=== PATIENT | female | born 1965 | race African-American/Black ===

== ENCOUNTER 2018-04-05 20:15 | Emergency (ER) | payer OTHER ==
--- OUTSIDE RECORDS SUMMARY | 2018-04-05 20:18 | XMS REPORT | Continuity of Care Document ---
:1965 Author Organization Interface Problems Problem Status Onset Classification Date Comments Source Date Reported Z12.31 - ENCNTR Active [facility] SCREEN MAMMOGRAM 6 Michael FOR [place] 241.0 - NONTOX Active [facility] UNINODUL [address] [place] [id number],MORBID Active [facility] OBESITY [facility] [address],GERD Active [address] [address], REFLUX Active [address] Hiatal hernia Active Problem 02/12/2016 [facility] Jeanette, OP[facility] Michael Hypertension Active Problem 02/12/2016 [facility] Jeanette, OPID Michael Morbid obesity Active Problem 02/12/2016 [facility] Jeanette, OP[facility] Michael Reflux Active Problem 02/12/2016 [facility] Jeanette, [facility] [place] Final: Morbid 06/16/2014 [facility] Obesity City Final: 06/16/2014 [facility] Unspecified [facility] Essential Hypertension Final: Body Mass 06/16/2014 [facility] Index 45.0-49.9, [facility] Adult Final: Personal 06/16/2014 [facility] History of [facility] Tobacco Use MORBID OBESITY Active [facility] Medications Medication Details Route Status Patient Ordering Order Source Instructions Provider Date Potassium 20 mEq, 15 mL, Inactive 06/09/ Chloride 1.33 Route: PO, Drug 2013 [facility] MEQ/ML Oral form: LIQ, City Solution Daily, Dosing Weight 114.545, kg, Start date: 06/09/14 11:34:00, Duration: 30 day, Stop date: 07/09/14 9:00:00Notes: (Same as: Potassium Chloride) Omeprazole 40 40 mg=1 cap, PO, Active 06/09/ MG Enteric Daily, # 30 cap, 2013 [facility] Coated Capsule 0 Refill(s) [facility] [Prilosec] Acetaminophen 15 ml, PO, Q4H, Active 06/09/ 24 MG/ML / Pain, # 240 mL, 2013 [facility] Codeine 0 Refill(s) [place] Phosphate 2.4 MG/ML Oral Solution Lovenox 40 mg, 0.4 mL, No Longer Route: SUB-Q, Active 2013 [facility] Drug form: INJ, City Q12H, Start date: 06/08/14 11:00:00, Duration: 30 day, Stop date: 07/07/14 23:00:00Notes: (Same as: Lovenox) acetaminophen-h 15 mL, Route: No Longer ydrocodone PO, Drug Form: Active 2013 [facility] SOLN, Q4H, PRN City See Nurse's Notes, Start date: 06/08/14 9:35:00, Duration: 30 day, Stop date: 07/08/14 9:34:00Notes: Do not exceed 4gm/day of acetaminophen. (Same as: [place] 325/7.5) Tylenol 650 mg, 20.3 mL, No Longer Route: PO, Drug Active 2013 [facility] form: LIQ, Q4H, City PRN Pain Score 1-3, Start date: 06/08/14 9:34:00, Duration: 30 day, Stop date: 07/08/14 9:33:00Notes: Max acetaminophen=40 00mg/day (4 gm/day). (Same as: Tylenol) heparin 5,000 unit, 1 Inactive mL, Route: 2013 [facility] SUB-Q, Drug [facility] form: INJ, ONCE, Start date: 06/07/14 23:00:00, Stop date: 06/07/14 23:00:00Notes: porcine heparin Pepcid 20 mg, 2 mL, No Longer Route: IVP, Drug Active 2013 [facility] form: INJ, Q12H, [facility] Start date: 06/07/14 21:00:00, Duration: 30 day, Stop date: 07/07/14 9:00:00Notes: (Same as: Pepcid) Can be dilute in 5-10cc NS IVP: Slow IV push over at least 2 minutes. Reglan 10 mg, 2 mL, No Longer Route: IV, Drug Active 2013 [facility] form: INJ, Q8H, [facility] Start date: 06/07/14 16:00:00, Duration: 30 day, Stop date: 07/07/14 8:00:00Notes: (Same as: Reglan) ceFAZolin 2 gm, 100 mL, No Longer Route: IVPB, [facility] 2013 [facility] Drug form: INJ, City Q8H, Start date: 06/07/14 16:00:00, Duration: 5 doses or times, Stop date: 06/09/14 0:00:00Notes: Same as: Ancef ketorolac 30 30 mg, 1 mL, No Longer mg/mL Route: IV, Drug [facility] 2013 [facility] injectable form: INJ, City solution Q6H-02, Start date: 06/07/14 14:00:00, Duration: 5 doses or times, Stop date: 06/08/14 14:00:00Notes: (Same as:Toradol) IV bolus must be given >15 seconds. Give IM administration slowly and deeply into the muscle. Not for use > 4 days Sodium Chloride 25 mL, Route: No Longer 0.9% IV IV, Start date: [address] 06/07/14 [facility] 12:00:00, Duration: 30 day, Stop date: 07/07/14 11:59:00, PRN Line Flush BD Normal 10 mL, Route: No Longer Saline Flush IV, Drug Form: [facility] 2013 [facility] INJ, PRN, PRN City Line Flush, Start date: 06/07/14 12:00:00, Duration: 30 day, Stop date: 07/07/14 11:59:00Notes: (Same as: BD Posiflush) Tylenol 650 mg, 1 supp, No Longer Route: AR, Drug [address] form: SUPP, Q4H, City PRN Temperature >100.5, Start date: 06/07/14 12:00:00, Duration: 30 day, Stop date: 07/07/14 11:59:00Notes: Max acetaminophen=40 00 mg/day (4 gm/day). (Same as: Tylenol) Phenergan 25 mg, 1 mL, No Longer Route: IM, Drug [address] form: INJ, Q4H, [place] PRN Nausea, Start date: 06/07/14 12:00:00, Duration: 30 day, Stop date: 07/07/14 11:59:00Notes: Do not give IV push. (Same as: Phenergan) Vasotec 1.25 mg, 1 mL, No Longer Route: IV, Drug Active 2013 [facility] form: INJ, Q6H, [place] PRN Elevated BP, Start date: 06/07/14 11:59:00, Duration: 30 day, Stop date: 07/07/14 11:58:00Notes: (Same as: Vasotec-IV) Dextrose 5% 1,000 mL, Rate: No Longer with 0.45% NaCl 80 ml/hr, Infuse Active 2013 [facility] IV 1,000 mL over: 12.5 hr, City Route: IV, Dosing Weight 72.727 kg, Total Volume: 1,000, Start date: 06/07/14 11:58:00, Stop date: 07/07/14 11:57:00 Zofran 4 mg, 2 mL, No Longer Route: IVP, Drug Active 2013 [facility] form: INJ, Q8H, [place] PRN Nausea & Vomiting, Start date: 06/07/14 10:45:00, Duration: 30 day, Stop date: 07/07/14 10:44:00Notes: (Same as: Zofran) Benadryl 12.5 mg, 0.25 No Longer mL, Route: IVP, [facility] 2013 [facility] Drug form: INJ, City Q6H, PRN Itching, Start date: 06/07/14 10:44:00, Duration: 30 day, Stop date: 07/07/14 10:43:00Notes: (Same as: Benadryl) naloxone 0.2 mg, 0.5 mL, No Longer Route: IVP, Drug Active 2013 [facility] form: INJ, City Q5Min, PRN Narcotic Reversal, Start date: 06/07/14 10:44:00, Duration: 30 day, Stop date: 07/07/14 10:43:00Notes: (Same as: Narcan) morphine 1 IV, Start date: No Longer mg/ml REDIPPER (30 06/07/142013 [facility] mg/30 mL) INJ 10:43:00, City Syringe 30 mg Duration: 30, 30 ml, 72.727Notes: Dose: Delay: Basal rate: 4hr limit: (Same as:Lee) Phenergan 25 mg, 50 mL, No Longer 200 ml/hr, [facility] 2013 [facility] Route: IVPB, [facility] Drug Form: SOLN, Q4H, PRN Nausea & Vomiting, Start date: 06/07/14 10:41:00, Duration: 30 day, Stop date: 07/07/14 10:40:00 Morphine 2 mg, 0.2 mL, Inactive Route: IVP, Drug 2013 [facility] form: INJ, City Q5Min, Dosing Weight 72.727, kg, PRN Pain Score 4-6, Start date: 06/07/14 8:44:00, Duration: 5 doses or times, Stop date: Limited # of timesNotes: (Same as:MORPhine Sulfate) Hydromorphone 0.5 mg, 0.25 mL, Inactive Route: IVP, Drug 2013 [facility] form: INJ, City Q5Min, Dosing Weight 72.727, kg, PRN Pain Score 7-10, Start date: 06/07/14 8:44:00, Duration: 4 doses or times, Stop date: Limited # of timesNotes: (Same as: Dilaudid) Ketorolac 30 mg, 1 mL, Inactive Route: IVP, Drug 2013 [facility] form: INJ, ONCE, [facility] Dosing Weight 72.727, kg, Start date: 06/07/14 8:44:00, Duration: 1 doses or times, Stop date: 06/07/14 8:44:00Notes: (Same as:Toradol) IV bolus must be given >15 seconds. Give IM administration slowly and deeply into the muscle. Not for use > 4 days Acetaminophen 1,000 mg, 100 Inactive mL, Route: IVPB 2013 [facility] Drug form: INJ, City ONCE, Dosing Weight 72.727, kg, PRN Pain Score 1-3, Start date: 06/07/14 8:44:00, Duration: 1 doses or times, Stop date: Limited # of timesNotes: Infuse over 15 minutes Do not exceed 4gm/day of acetaminophen Ondansetron 4 mg, 2 mL, Inactive Route: IVP, Drug 2013 [facility] form: INJ, ONCE, [facility] Dosing Weight 72.727, kg, PRN Nausea & Vomiting, Start date: 06/07/14 8:44:00Notes: (Same as: Zofran) Naloxone 0.04 mg, 0.1 mL, Inactive Route: IVP, Drug 2013 [facility] form: INJ, City Q2MIN, Dosing Weight 72.727, kg, PRN Narcotic Reversal, Start date: 06/07/14 8:44:00, Duration: 8 doses or times, Stop date: Limited # of timesNotes: Same as Narcan Flumazenil 0.2 mg, 2 mL, Inactive Route: IVP, Drug 2013 [facility] form: INJ, PRN, [facility] Dosing Weight 72.727, kg, PRN Benzodiazepine Reversal, Initial dose, Start date: 06/07/14 8:44:00, Duration: 30 day, Stop date: 07/07/14 8:43:00Notes: (Same as: Romazicon) Meperidine 12.5 mg, 0.25 Inactive mL, Route: IVP, 2013 [facility] Drug form: INJ, City Q30Min, Dosing Weight 72.727, kg, PRN Other -See Comment, For shivering, Start date: 06/07/14 8:44:00, Duration: 2 doses or times, Stop date: Limited # of timesNotes: (Same As: Demerol) chlorhexidine 15 mL, Route: Inactive topical 0.12% S&SPIT, PRE OP, 2013 [facility] liquid Drug form: LIQ, [facility] Start date: 06/07/14 6:30:00, Stop date: 06/07/14 21:00:00Notes: (Same As: Peridex) ceFAZolin 2 gm, 100 mL, No Longer Route: IVPB, Active 2013 [facility] Drug form: INJ, City PRE OP, Start date: 06/07/14 6:30:00, Stop date: 06/07/14 21:00:00Notes: Same as: Ancef Allergies, Adverse Reactions, Alerts Substance Category Reaction Severity Reaction Status Date Comments Source type Reported Immunizations Immunization Date Given Site Status Last Updated Comments Source Results Order Name Results Value Reference Date Interpretation Comments Source Range Stereo Stereo 01/08 - MH [facility] Breast BX Breast BX /2017 - [place] Uni /Clip Uni /Clip Land Primary SD Primary SD TU MAE Read by: Gwendolyn Bean MD Dictated Date/time: 01/12/18 10:37 STEREOTACTIC GUIDED BIOPSY RIGHT BREAST WITH MARKING DEVICE INSERTED AND POST DIGITAL MAMMOGRAPHIC IMAGIN01/08/2018 Electronically Signed by: Gwendolyn Bean MD 01/12/18 10:37 FINAL REPORT CLINICAL: Abnormal Mammogram/R92.8. PATIENT CONSENT: The risks, benefits and alternatives for the procedure were discussed with the patient. Patient acknowledged understanding and informed written consent was obtained. A time out was per formed prior to the procedure to confirm patient identification and the location of the lesion. Correlation is made to exams dated: 05/07/2017 mammogram, 07/29/2017 mammogram, and 02/09/2016 mammogram - [facility]. A stereotactic guided biopsy was performed for the concerning 0.9 cm x 8 cm area of grouped calcifications located in the right breast at 11 o'clock posterior depth. This was described on the prev ious mammography report. The skin was prepped in the usual manner. Local anesthetic was administered to the access site. A skin humza was made in the breast. The abnormality was approached from the l ateral aspect using an upright digital mammography unit. A 9 gauge biopsy needle was placed adjacent to the abnormality under computer guidance and confirmatory stereotactic mammography images were obt ained to document needle placement. Once the needle was documented to be in the correct location, five specimens were obtained using [employer] Eviva. The patient received additional local anesthetic durin g the procedure. A lynn-shaped clip was inserted into the biopsy cavity. A skin adhesive and a sterile dressing were applied to the access site. Post procedure digital mammographic imaging demonstrate s the clip 5cm medial from the geometric center of the targeted area and complete removal of the calcifications. The specimens were sent to the laboratory for pathological analysis. IMPRESSION: STEREOTACTIC GUIDED BIOPSY BENIGN RECOMMENDATION:Stereotactic guided biopsy of the 0.9 cm x 8 cm area of grouped calcifications in the right breast at 11 o'clock posterior depth was successful with no apparent post procedure compli cations. Pathology indicates benign fibroadenomatoid change with micro- calcifications present. Pathology results are concordant with mammography findings. Two of five specimens have micro calcifications. Return to annual mammogram screening schedule is recommended.(02/08/2018) This exam was interpreted at [id number] at [facility]. Professional services are provided by the [facility]. Gwendolyn Carver M.D., ms,md/penrad:01/12/2018 10:37:37 Date Pitter(s): Anuradha Reardon, [facility] letter sent: Post Bx Results Digital Digital - DIGITAL MAMMO SCREENING JIMMY TU 02/08 - [facility] Mammo Mammo /2015 - [place] Screening Screening BILATERAL DIGITAL SCREENING MAMMOGRAM WITH CAD: 2015 Jimmy Marquez MA CLINICAL: Screening. Read by: Jake Kenney MD PHD Dictated Date/time: 02/12/16 15:56 Electronically Signed by: Jake Kenney MD PHD 02/12/16 15:56 FINAL REPORT Current study was evaluated with a Computer Aided Detection (CAD) system. Comparison is made to exams dated: 10/31/2014 mammogram - [facility], 03/05/2013 mammogram and 06/03/2012 mammogram - [facility]. The tissue of both breasts is heterogeneously dense, which could obscure detection of small masses. There are benign appearing calcifications in both breasts. No significant masses, calcifications, or other findings are seen in either breast. There has been no significant interval change. IMPRESSION: BENIGN There is no mammographic evidence of malignancy. A 1 year screening mammogram is recommended. SUMMARY: Given family history of breast cancer, consider genetic counseling to assess lifetime risk of breast cancer. If this is 20% or greater, yearly MRI should be performed in addition to yearly mammography per ACR/ACS guidelines. Jake Kenney M.D. Additional Observers: Galo petit/penrad:02/12/2016 15:56:53 Date Pitter: Cher Schulz RT(R)(M), [facility] This exam was dictated and interpreted by [id number] for [facility]. letter sent: Normal [place] Mammogram BI-RADS: 2 Benign US Breast US Breast - US BREAST COMPLETE UNI MA/R 10/31 - [facility] Complete Complete Uni /2014 - [place] Uni MA MA ULTRASOUND OF RIGHT BREAST AND RIGHT AXILLA: 10/31/2014 CLINICAL: 611.72 Breast Mass. Read by: Jake Kenney MD PHD Dictated Date/time: 10/31/14 13:22 Electronically Signed by: Jake Kenney MD PHD 10/31/14 13:22 FINAL REPORT Comparison is made to exams dated: 10/31/2014 mammogram - [facility], 03/05/2013 ultrasound and 03/05/2013 mammogram - [facility]. Color flow and real-time ultrasound of the right breast and axilla were performed. There is a stable benign 1 cm oval mass in the right breast at 5 o'clock anterior depth 8 cm from the nipple. This oval mass is isoechoic. This correlates with mammography findings. No abnormalities were seen sonographically in the right axilla. IMPRESSION: BENIGN There is no sonographic evidence of malignancy. The stable 1 cm oval mass in the right breast is consistent with an oil cyst and is benign. Return to annual mammogram screening schedule is recommended. SUMMARY: These findings were discussed with the patient at the time of examination. Jake Kenney M.D. hh/:10/31/2014 13:22:11 Date Pitter: Sabi Walker, [facility] This exam was dictated and interpreted by [id number] for [facility]. letter sent: Bilateral Benign Ultrasound BI-RADS: 2 Benign Digital Digital - DIGITAL MAMMO DX JIMMY MA 10/31 - [facility] Mammo DX Mammo DX Jimmy - [place] Jimmy [facility] BILATERAL DIGITAL DIAGNOSTIC MAMMOGRAM WITH CAD: 10/31/2014 CLINICAL: 611.72 Breast Mass. Read by: Jake Kenney MD PHD Dictated Date/time: 10/31/14 13:15 Electronically Signed by: Jake Kenney MD PHD 10/31/14 13:15 FINAL REPORT Current study was evaluated with a Computer Aided Detection (CAD) system. Comparison is made to exams dated: 03/05/2013 mammogram and 06/03/2012 mammogram - [facility]. The tissue of both breasts is heterogeneously dense, which could obscure detection of small masses. The patient complains of a palpable mass in the right breast, which correlates with an oil cyst. There are benign calcifications in both breasts. No significant masses, calcifications, or other findings are seen in either breast. There has been no significant interval change. IMPRESSION: BENIGN There is no mammographic evidence of malignancy. A 1 year screening mammogram is recommended. SUMMARY: Ultrasound has been requested and will be performed at this time. Jake petit/jesu:10/31/2014 13:15:13 Date Pitter: Cher MOLINA)(James), [facility] This exam was dictated and interpreted by [id number] for [facility]. letter sent: Normal exam Mammogram BI-RADS: 2 Benign Thyroid US Thyroid US 08/24 - [facility] REASON FOR EXAM: 241.0. Read by: Nicolas Umana MD Dictated Date/time: 08/24/14 10:01 COMPARISON: Thyroid ultrasound performed 02/22/2014 at [facility]. Electronically Signed by: Nicolas Umaan MD 08/24/14 10:17 FINAL REPORT FINDINGS: Ultrasound of the thyroid gland was performed. Static images are submitted. There is no demonstrable parathyroid adenoma. There is a 0.93 x 0.62 x 0.85 cm heterogeneous nodule in the inferior right thyroid lobe, previously 1.6 x 0.59 x 0.6 cm. There are new hypoechoic cysts versus nodules in the right thyroid lobe: 0.19 cm superiorly and 0.35 cm inferiorly. The right thyroid lobe measures 4.8 x 1.3 x 1.7 cm (length x AP x width). (Biopsy was requested for the 0.93 cm right thyroid nodule. Given the interval decrease in s ize of this nodule from the prior examination a benign etiology is favored. The biopsy was deferred. A follow-up thyroid ultrasound is recommended in 6 months for reassessment. This was discussed with t bina patient and the referring physician's office on 08/24/2014.) The thyroid isthmus is unremarkable measuring a maximal AP dimension of 0.34 cm. There is a 0.35 cm hypoechoic cyst versus nodule in the mid left thyroid lobe, previously 0.28 cm. The left thyroid lobe measures 4.8 x 1.5 x 2.2 cm ( length x AP x width). IMPRESSION: There are subcentimeter lesions in the thyroid gland with interval change from the prior examination as described above. A follow-up thyroid ultrasound is recommended in 6 months. SL: 15 ELECTROLYTE Sodium Lvl 142 meq/L 135 - 145 06/09 [facility] ELECTROLYTE Potassium 3.3 meq/L 3.5 - 5.1 06/09 S Lv [facility] ELECTROLYTE Chloride Lvl 107 meq/L 95 - 109 06/09 [facility] ELECTROLYTE BUN 5 mg/dL 7 - 22 06/09 [facility] ELECTROLYTE Glucose Lvl 100 mg/dL 70 - 99 06/09 4Interpretive Data: Adult reference range values reflect the clinical guidelines of the [place] [employer]. [facility] ELECTROLYTE AST 21 unit/L 0 - 37 06/09 [facility] ELECTROLYTE ALT 19 unit/L 0 - 65 06/09 [facility] ELECTROLYTE Albumin Lvl 2.7 g/dL 3.5 - 5.0 06/09 [facility] ELECTROLYTE CO2 29 meq/L 24 - 32 06/09 [facility] ELECTROLYTE Calcium Lvl 7.6 mg/dL 8.5 - 10.5 06/09 [facility] ELECTROLYTE eGFR 99 06/09 1Result Comment: The eGFR is calculated using the CKD-EPI formula. In most young, healthy individuals the eGFR will be > 90 mL/min/1.73m2. The eGFR declines with age. An eGFR of 60-89 may be normal in mL/min/1.7 some populations, particularly the elderly, for whom the CKD-EPI formula has not been extensively validated. Use of the eGFR is not recommended in the following populations: [address] Individuals with unstable creatinine concentrations, including patients and those with serious co-morbid conditions. Patients with extremes in muscle mass or diet. The data above are obtained from the National Kidney Disease Education Program (NKDEP) which additionally recommends that when the eGFR is used in patients with extremes of body mass index for purposes of drug dosing, the eGFR should be multiplied by the estimated BMI. ELECTROLYTE Creatinine 0.8 mg/dL 0.5 - 1.4 06/09 S Lv [facility] ELECTROLYTE Alk Phos 32 unit/L 39 - 136 06/09 S [facility] ELECTROLYTE Bili Total 0.6 mg/dL 0.2 - 1.3 06/09 S [facility] ELECTROLYTE Total 5.8 g/dL 6.4 - 8.4 06/09 S [facility] ELECTROLYTE B/C Ratio 6 6 - 25 06/09 S [facility] ELECTROLYTE AGAP 9.3 meq/L 10.0 - 06/09 S 20.0 [facility] ELECTROLYTE A/G Ratio 0.9 0.7 - 1.6 06/09 S [facility] ELECTROLYTE Globulin 3.1 g/dL 2.0 - 4.0 06/09 S [facility] HEMATOLOGY Lymphocytes 31.7 % 20.0 - 06/09 MH 40.0 [facility] HEMATOLOGY Monocytes 9.6 % 2.0 - 12.0 06/09 [facility] HEMATOLOGY Segs 57.8 % 45.0 - 06/09 MH 75.0 [facility] HEMATOLOGY Basophils 0.5 % 0.0 - 1.0 06/09 [facility] HEMATOLOGY Basophils # 0.0 K/CMM 0.0 - 0.2 06/09 [facility] HEMATOLOGY Segs-Bands # 3.5 K/CMM 1.5 - 8.1 06/09 [facility] HEMATOLOGY Lymphocytes 1.9 K/CMM 1.0 - 5.5 06/09 # /2013 [facility] HEMATOLOGY Monocytes # 0.6 K/CMM 0.0 - 0.8 06/09 [facility] HEMATOLOGY Eosinophils 0.0 K/CMM 0.0 - 0.5 06/09 # /2013 [facility] HEMATOLOGY Eosinophils 0.4 % 0.0 - 4.0 06/09 [facility] HEMATOLOGY Platelet 125 K/CMM 133 - 450 06/09 [facility] HEMATOLOGY MPV 9.4 fL 7.4 - 10.4 06/09 [facility] HEMATOLOGY WBC 6.1 K/CMM 3.7 - 10.4 06/09 [facility] HEMATOLOGY Hgb 10.9 g/dL 12.0 - 06/09 MH 16.0 [facility] HEMATOLOGY RBC 3.36 M/CMM 4.20 - 06/09 MH 5. [facility] HEMATOLOGY MCV 91.7 fL 80.0 - 06/09 MH 98.0 [facility] HEMATOLOGY Hct 30.8 % 36.0 - 06/09 MH 48.0 [facility] HEMATOLOGY MCHC 35.4 g/dL 32.0 - 06/09 MH 36.0 [facility] HEMATOLOGY MCH 32.5 pg 27.0 - 06/09 MH 31.0 [facility] HEMATOLOGY RDW 13.1 % 11.5 - 06/09 MH 14.5 [facility] ELECTROLYTE CO2 26 meq/L 24 - 32 12 MH S [facility] ELECTROLYTE AST 25 unit/L 0 - 37 06/08 MH S [facility] ELECTROLYTE ALT 24 unit/L 0 - 65 06/08 S [facility] ELECTROLYTE Alk Phos 36 unit/L 39 - 136 06/08 S [facility] ELECTROLYTE Creatinine 0.8 mg/dL 0.5 - 1.4 06/08 S Lv [facility] ELECTROLYTE eGFR 99 06/08 2Result Comment: The eGFR is calculated using the CKD-EPI formula. In most young, healthy individuals the eGFR will be > 90 mL/min/1.73m2. The eGFR declines with age. An eGFR of 60-89 may be normal in mL/min/1.7 some populations, particularly the elderly, for whom the CKD-EPI formula has not been extensively validated. Use of the eGFR is not recommended in the following populations: [address] Individuals with unstable creatinine concentrations, including patients and those with serious co-morbid conditions. Patients with extremes in muscle mass or diet. The data above are obtained from the National Kidney Disease Education Program (NKDEP) which additionally recommends that when the eGFR is used in patients with extremes of body mass index for purposes of drug dosing, the eGFR should be multiplied by the estimated BMI. ELECTROLYTE Calcium Lvl 8.0 mg/dL 8.5 - 10.5 06/08 S [facility] ELECTROLYTE Bili Total 0.9 mg/dL 0.2 - 1.3 06/08 S [facility] ELECTROLYTE Total 6.1 g/dL 6.4 - 8.4 06/08 MH S [facility] ELECTROLYTE Chloride Lvl 103 meq/L 95 - 109 06/08 S [facility] ELECTROLYTE Sodium Lvl 138 meq/L 135 - 145 06/08 MH S [facility] ELECTROLYTE Potassium 3.4 meq/L 3.5 - 5.1 06/08 MH S Lvl /2013 [facility] ELECTROLYTE Glucose Lvl 112 mg/dL 70 - 99 06/08 5Interpretive Data: Adult reference range values reflect the clinical guidelines MH S of the [place] [employer]. [facility] ELECTROLYTE BUN 6 mg/dL 7 - 22 06/08 S /2013 [facility] ELECTROLYTE Albumin Lvl 2.9 g/dL 3.5 - 5.0 06/08 S [facility] ELECTROLYTE AGAP 12.4 meq/L 10.0 - 06/08 MH S 20.0 [facility] ELECTROLYTE Globulin 3.2 g/dL 2.0 - 4.0 06/08 S [facility] ELECTROLYTE A/G Ratio 0.9 0.7 - 1.6 06/08 MH S [facility] ELECTROLYTE B/C Ratio 8 6 - 25 06/08 S [facility] HEMATOLOGY WBC 10.1 K/CMM 3.7 - 10.4 06/08 [facility] HEMATOLOGY RBC 3.81 M/CMM 4.20 - 06/08 MH 5.40 /2013 [facility] HEMATOLOGY Hct 35.4 % 36.0 - 06/08 MH 48.0 [facility] HEMATOLOGY MCV 93.0 fL 80.0 - 06/08 MH 98.0 /2013 [facility] HEMATOLOGY MCH 30.8 pg 27.0 - 06/08 MH 31.0 [facility] HEMATOLOGY Hgb 11.7 g/dL 12.0 - 06/08 MH 16.0 [facility] HEMATOLOGY MCHC 33.1 g/dL 32.0 - 06/08 MH 36.0 [facility] HEMATOLOGY Platelet 150 K/CMM 133 - 450 06/08 MH /2013 [facility] HEMATOLOGY MPV 9.5 fL 7.4 - 10.4 06/08 [facility] HEMATOLOGY RDW 13.0 % 11.5 - 06/08 MH 14. [facility] HEMATOLOGY Segs-Bands # 8.6 K/CMM 1.5 - 8.1 06/08 [facility] HEMATOLOGY Lymphocytes 0.9 K/CMM 1.0 - 5.5 06/08 MH # /2013 [facility] HEMATOLOGY Monocytes # 0.6 K/CMM 0.0 - 0.8 06/08 [facility] HEMATOLOGY Eosinophils 0.0 K/CMM 0.0 - 0.5 06/08 # /2013 [facility] HEMATOLOGY Eosinophils 0.0 % 0.0 - 4.0 06/08 [facility] HEMATOLOGY Segs 85.1 % 45.0 - 06/08 MH 75.0 [facility] HEMATOLOGY Lymphocytes 9.4 % 20.0 - 06/08 MH 40.0 /2013 [facility] HEMATOLOGY Monocytes 5.5 % 2.0 - 12.0 06/08 [facility] Upper GI Upper GI Exam: Upper GI Gastrografin swallow 06/08 - Series w Series - [facility] soluble DX soluble DX Reason for Exam: Status post gastric bypass surgery Read by: Abdullahi Chavez MD Dictated Date/time: 06/08/14 08:17 Electronically Signed by: Abdullahi Chavez MD 06/08/14 08:18 FINAL REPORT Comparison Exam: MRI abdomen 05/05/2009 Discussion: On chief fundraising officer view, there are no dilated loops of bowel or abnormal air-fluid level patterns. The patient is status post cholecystectomy from a prior exam. The patient drank Gastrografin without incident. T here is no evidence for obstruction or extravasation of the oral contrast material. No dilated loops of bowel or delayed emptying. Fluoro time: 0.7 minutes Impression: 1. Unremarkable upper GI Gastrografin swallow without evidence for obstruction or extravasation. BLOOD BANK Antibody Negative 06/07 RESULTS Scrn [facility] (06/07/14 6:49 AM) [facility] BLOOD BANK ABO/Rh O POS 06/07 RESULTS [facility] CHEM PANEL Vitamin D, 13 ng/mL 30 - 100 05/24 7Interpretive Data: Reference range is based on recommendations in the Endocrine 25-OH, Total /2014 Society Clinical Practice Guideline (J Clin Endocrinol Metab [facility] 2011;96:8025-5497) [facility] CHEM PANEL eGFR 99 05/24 3Result Comment: The eGFR is calculated using the CKD-EPI formula. In most young, healthy individuals the eGFR will be >90 mL/ min/1.73m2. The eGFR declines with age. An eGFR of 60-89 may be normal in mL/min/1.7 some populations, particularly the elderly, for whom the CKD-EPI formula has not been extensively validated. Use of the eGFR is not recommended in the following populations: [address] Individuals with unstable creatinine concentrations, including patients and those with serious co-morbid conditions. Patients with extremes in muscle mass or diet. The data above are obtained from the National Kidney Disease Education Program (NKDEP) which additionally recommends that when the eGFR is used in patients with extremes of body mass index for purposes of drug dosing, the eGFR should be multiplied by the estimated BMI. CHEM PANEL Creatinine 0.8 mg/dL 0.5 - 1.4 05/24 Lvl [facility] CHEM PANEL BUN 11 mg/dL 7 - 22 05/24 [facility] CHEM PANEL Glucose Lvl 100 mg/dL 70 - 99 05/24 6Interpretive Data: Adult reference range values reflect the clinical guidelines of the [place] [employer]. [facility] ELECTROLYTE Sodium Lvl 140 meq/L 135 - 145 05/24 S [facility] ELECTROLYTE Potassium 3.5 meq/L 3.5 - 5.1 05/24 S Lvl [facility] HEMATOLOGY Hgb 13.9 g/dL 12.0 - 05/24 16.0 [facility] HEMATOLOGY Hct 41.5 % 36.0 - 05/24 48.0 [facility] PARATHYROID PTH Intact 52.0 pg/mL 11.1 - 05/24 PROFILE 79.5 [facility] Chest 2 Chest 2 Chest x-ray 2 views 05/24 - views - [facility] INDICATION: Cough Read by: Daphney Jane MD Dictated Date/time: 05/24/14 13:10 Electronically Signed by: Daphney Jane MD 05/24/14 13:10 FINAL REPORT COMPARISON: None FINDINGS: Heart size and central vasculature are within normal limits. There is no effusion or focal pneumonia. No pneumothorax. No acute osseous pathology. IMPRESSION: No acute cardiopulmonary process. Vital Signs Vital Sign Value Date Comments Source Diastolic (mm Hg) 86 06/09/2014 [facility] Respitory Rate 16 06/09/2014 [facility] Systolic (mm Hg) 130 06/09/2014 [facility] Temperature Oral (F) 97.6 F 06/09/2014 [facility] Heart Rate 60 06/09/2014 [facility] Temperature Oral (F) 97.8 F 06/09/2014 [facility] Heart Rate 73 06/09/2014 [facility] Systolic (mm Hg) 111 06/09/2014 [facility] Respitory Rate 16 06/09/2014 [facility] Diastolic (mm Hg) 69 06/09/2014 [facility] Heart Rate 65 06/09/2014 [facility] Respitory Rate 16 06/09/2014 [facility] Systolic (mm Hg) 116 06/09/2014 [facility] Diastolic (mm Hg) 81 06/09/2014 [facility] Temperature Oral (F) 98 F 06/09/2014 [facility] Weight 114.545 06/07/2014 [facility] Height 162.56 cm 06/07/2014 [facility] BMI Calculated 43.35 06/07/2014 [facility] Weight 114.545 06/07/2014 [facility] BMI Calculated 43.35 06/07/2014 [facility] Height 162.56 cm 06/07/2014 [facility] Weight 72.727 05/24/2014 [facility] BMI Calculated 27.52 05/24/2014 [facility] Height 162.56 cm 05/24/2014 [facility] Encounters Location Location Encounter Encounter Reason Attending ADM DC Status Source Details Type Number For Provider Date Date [facility] [id number] [facility] 06/07 06/09 Michael Sha /2013 [facility] Outpt Diag [id number] Uriel 08/24 08/25 [facility] [facility] Outpatient [id number] Monique Manoj 10/20 10/21 [facility] Out[facility] /2014 [facility] Outpatient [id number] Monique Manoj 10/31 11/01 [facility] /2014 [facility] Outpatient [id number] Manjinder 02/08 02/09 [facility] Outpatient [place] /2015 [facility] Procedures Procedure Code Date Perfomer Comments Source Laparoscopic [id number] [facility] Gastroenterostomy [facility] Other Endoscopy of 45.13 [facility] Small Intestine [facility] Bilateral tubal [id number] OPI ligation [facility] Cholecystectomy [id number] [facility] Hysterectomy [id number] [facility] Bilateral tubal [id number] [facility] Cholecystectomy [id number] [facility] Hysterectomy [id number] [facility]
--- NOTE | 2018-04-05 23:09 | EDPHYS ---
Physician Documentation [facility] Name: Ileana Madden Age: 53 yrs Sex: Female : 1965 Arrival Date: 04/05/2018 Time: 20:16 Bed 27 Private MD: ED Physician Vitaly Aldridge HPI: 04/05 20:57 This 53 yrs old Black Female presents to ER via Ambulatory with complaints of KNOT ON cp LEG. 21:00 The patient presents with pain, that is acute, swelling, tenderness. The complaints cp affect the posterior aspect upper calf and lower lateral popliteal area. 21:00 Context: resulted from an unknown cause, the patient can fully bear weight, the patient cp is able to ambulate, without difficulty, noticed today. Associated signs and symptoms: Pertinent negatives fever, numbness, rash, warmth. Treatment prior to arrival includes: no previous treatment. Severity of symptoms: in the emergency department the symptoms are unchanged, despite home interventions. Historical: - Allergies: 20:24 No Known Allergies; aj1 - Home Meds: 20:24 Magnesium Oxide Oral [Active]; levothyroxine 100 mcg tab 1 tab once daily [Active]; aj1 folic acid 400 mcg Oral tab 1 tab once daily [Active]; Klor-Con 10 10 mEq Oral TbER 1 tab once daily [Active]; Integra 125-40-3 mg oral cap 1 cap once daily [Active]; pantoprazole 40 mg oral TbEC 1 tab once daily [Active]; - PMHx: 20:24 Hypothyroidism; GERD; Anemia; aj1 - Immunization history:: Flu vaccine is not up to date. - Social history:: Smoking status: Patient/guardian denies using tobacco. - Ebola Screening: : Patient denies travel to an Ebola-affected area in the 21 days before illness onset. ROS: 21:00 Constitutional: Negative for body aches, chills, fever, poor PO intake. cp 21:00 Eyes: Negative for injury, pain, redness, and discharge. cp 21:00 ENT: Negative for drainage from ear(s), ear pain, sore throat, difficulty swallowing, difficulty handling secretions. 21:00 Cardiovascular: Negative for chest pain, palpitations. 21:00 Respiratory: Negative for cough, shortness of breath, wheezing. 21:00 Abdomen/GI: Negative for abdominal pain, vomiting, diarrhea, constipation, black/tarry stool, rectal bleeding. 21:00 Back: Negative for pain at rest, pain with movement. 21:00 MS/extremity: Positive for pain, swelling, tenderness, of the posterior aspect left upper calf and popliteal area, Negative for injury or acute deformity, decreased range of motion, paresthesias. 21:00 Neuro: Negative for altered mental status, headache, syncope, near syncope, weakness. 21:00 All other systems are negative. Exam: 21:10 Constitutional: The patient appears in no acute distress, alert, awake, comfortable, cp non-diaphoretic, non-toxic, well developed, well nourished. 21:10 Head/Face: Normocephalic, atraumatic. cp 21:10 Eyes: Periorbital structures: appear normal, Conjunctiva: normal, no exudate, no injection, Sclera: no appreciated abnormality, Lids and lashes: appear normal, bilaterally. 21:10 ENT: External ear(s): are unremarkable, Nose: is normal, Mouth: is normal, Posterior pharynx: is normal, airway is patent. 21:10 Neck: ROM/movement: is normal, is supple, without pain, no range of motions limitations, no nuchal rigidity. 21:10 Chest/axilla: Inspection: normal. 21:10 Cardiovascular: Rate: normal, Rhythm: regular, Edema: is not appreciated, JVD: is not appreciated. 21:10 Respiratory: the patient does not display signs of respiratory distress, Respirations: normal, no use of accessory muscles, no retractions, no splinting, no tachypnea, labored breathing, is not present, Breath sounds: are clear throughout, no decreased breath sounds, no stridor, no wheezing. 21:10 Abdomen/GI: Exam negative for discomfort, distension, guarding, Inspection: abdomen appears normal. 21:10 Back: pain, is absent, ROM is normal. 21:10 Musculoskeletal/extremity: Extremities: grossly normal except: noted in the posterior aspect left upper calf popliteal area: tenderness, mild swelling, well defined area of ecchymosis, There is no evidence of decreased ROM, trauma, ROM: limited active range of motion, in the left leg, Perfusion: the extremity is normally perfused throughout, Sensation intact. Joints: All joints appear normal with full range of motion. Weight bearing: able to fully bear weight. 21:10 Skin: cellulitis, is not appreciated, no rash present. 21:10 Neuro: Orientation: to person, place \T\ time. Mentation: is normal, Motor: moves all fours, strength is normal, Sensation: no obvious gross deficits, Gait: is steady. Vital Signs: 20:24 BP 103 / 83; Pulse 73; Resp 18; Temp 97.9; Pulse Ox 100% on R/A; Weight 68.04 kg (R); aj1 Height 5 ft. 4 in. (162.56 cm) (R); 21:42 BP 102 / 75; rv 20:24 Body Mass Index 25.75 (68.04 kg, 162.56 cm) aj1 MDM: 20:26 Patient medically screened. cp 20:30 Differential diagnosis: DVT, cellulitis, abscess. cp 23:08 Data reviewed: vital signs, nurses notes, radiologic studies, ultrasound. cp 23:08 Counseling: I had a detailed discussion with the patient and/or guardian regarding: the cp historical points, exam findings, and any diagnostic results supporting the discharge/admit diagnosis, radiology results, the need for outpatient follow up, a family practitioner, to return to the emergency department if symptoms worsen or persist or if there are any questions or concerns that arise at home. ED course: VSS. US negative for DVT. Will discharge to home for continued monitoring. 04/05 20:54 Order name: US Extremity Venous Unilateral Ltd cp Administered Medications: No medications were administered Disposition: 04/06 04:32 Co-signature as Attending Physician, Vitaly Aldridge MD. rn Disposition: 04/05/18 23:08 Discharged to Home. Impression: Pain in left leg. - Condition is Stable. - Discharge Instructions: Musculoskeletal Pain, Heat Therapy. - Medication Reconciliation Form, Thank You Letter, Antibiotic Education, Prescription Opioid Use form. - Follow up: Private Physician; When: 1 - 2 days; Reason: Recheck today's complaints. - Problem is new. - Symptoms have improved. Signatures: Dispatcher [employer] EDShell Marte RN RN aj1 Vitaly Aldridge MD MD rn Damaso Adorno PA PA cp Donell Padilla RN RN rv Corrections: (The following items were deleted from the chart) 04/05 23:41 23:08 04/05/2018 23:08 Discharged to Home. Impression: Pain in left leg. Condition is rv Stable. Forms are Medication Reconciliation Form, Thank You Letter, Antibiotic Education, Prescription Opioid Use. Follow up: Private Physician; When: 1 - 2 days; Reason: Recheck today's complaints. Problem is new. Symptoms have improved. cp
--- NOTE | 2018-04-05 23:09 | ER ---
Nurse's Notes [facility] Name: Ileana Madden Age: 53 yrs Sex: Female : 1965 Arrival Date: 04/05/2018 Time: 20:16 Bed 27 Private MD: Diagnosis: Pain in left leg Presentation: 04/05 20:20 Presenting complaint: Patient states: "I had walked out to my truck and the back of my aj1 leg was hurting. When I got back in the house and felt it, there was a big knot there, and it still hurts in that area" Denies any injury to left leg. Transition of care: patient was not received from another setting of care. Onset of symptoms was April 05, 2018 at 20:00. Risk Assessment: Do you want to hurt yourself or someone else? Patient reports no desire to harm self or others. Initial Sepsis Screen: Does the patient meet any 2 criteria? No. Patient's initial sepsis screen is negative. Does the patient have a suspected source of infection? No. Patient's initial sepsis screen is negative. Care prior to arrival: None. 20:20 Method Of Arrival: Ambulatory aj1 20:20 Acuity: CHAUNCEY 4 aj1 Triage Assessment: 20:24 General: Appears in no apparent distress. comfortable, Behavior is calm, cooperative, aj1 appropriate for age. Pain: Pain currently is 5 out of 10 on a pain scale. Neuro: Level of Consciousness is awake, alert, obeys commands. Cardiovascular: Patient's skin is warm and dry. Respiratory: Airway is patent Respiratory effort is even, unlabored, Respiratory pattern is regular, symmetrical. Historical: - Allergies: 20:24 No Known Allergies; aj1 - Home Meds: 20:24 Magnesium Oxide Oral [Active]; levothyroxine 100 mcg tab 1 tab once daily [Active]; aj1 folic acid 400 mcg Oral tab 1 tab once daily [Active]; Klor-Con 10 10 mEq Oral TbER 1 tab once daily [Active]; Integra 125-40-3 mg oral cap 1 cap once daily [Active]; pantoprazole 40 mg oral TbEC 1 tab once daily [Active]; - PMHx: 20:24 Hypothyroidism; GERD; Anemia; aj1 - Immunization history:: Flu vaccine is not up to date. - Social history:: Smoking status: Patient/guardian denies using tobacco. - Ebola Screening: : Patient denies travel to an Ebola-affected area in the 21 days before illness onset. Screenin:44 Abuse screen: Denies threats or abuse. Denies injuries from another. Nutritional rv screening: No deficits noted. Tuberculosis screening: No symptoms or risk factors identified. Fall Risk None identified. Assessment: 20:43 General: Appears in no apparent distress. comfortable, Behavior is calm, cooperative. rv Pain: Denies pain. Neuro: Level of Consciousness is awake, alert, obeys commands, Oriented to person, place, time, situation. Cardiovascular: Capillary refill < 3 seconds. Respiratory: Airway is patent. GI: No signs and/or symptoms were reported involving the gastrointestinal system. : No signs and/or symptoms were reported regarding the genitourinary system. EENT: No signs and/or symptoms were reported regarding the EENT system. Derm: Skin is intact. 21:42 Reassessment: Patient appears in no apparent distress at this time. Patient and/or rv family updated on plan of care and expected duration. Pain level reassessed. Patient is alert, oriented x 3, equal unlabored respirations, skin warm/dry/pink. 22:50 Reassessment: Patient appears in no apparent distress at this time. Patient and/or rv family updated on plan of care and expected duration. Pain level reassessed. Patient is alert, oriented x 3, equal unlabored respirations, skin warm/dry/pink. patient taken to ultrasound. Vital Signs: 20:24 BP 103 / 83; Pulse 73; Resp 18; Temp 97.9; Pulse Ox 100% on R/A; Weight 68.04 kg (R); aj1 Height 5 ft. 4 in. (162.56 cm) (R); 21:42 BP 102 / 75; rv 20:24 Body Mass Index 25.75 (68.04 kg, 162.56 cm) aj1 ED Course: 20:16 Patient arrived in ED. es 20:21 Triage completed. aj1 20:24 Arm band placed on Patient placed in an exam room. aj1 20:26 Damaso Adorno PA is PHCP. cp 20:26 Vitaly Aldridge MD is Attending Physician. cp 20:44 Patient has correct armband on for positive identification. Bed in low position. Call rv light in reach. Side rails up X 1. Pulse ox on. NIBP on. 22:41 Patient taken to ultrasound. katy 22:59 Patient moved back from ultrasound. katy 23:00 US Extremity Venous Unilateral Ltd In Process Unspecified. EDMS 23:41 No provider procedures requiring assistance completed. Patient did not have IV access rv during this emergency room visit. Administered Medications: No medications were administered Outcome: 23:08 Discharge ordered by . jonas 23:41 Discharged to home ambulatory. rv 23:41 Condition: good 23:41 Discharge instructions given to patient, Instructed on discharge instructions, follow up and referral plans. Demonstrated understanding of instructions, follow-up care. 23:41 Patient left the ED. rv Signatures: Dispatcher [employer] Shell Castillo, RN RN aj1 Christine Maya Corey, PA PA cp Dupre, Jacques jd Vicente, Ronaldo, RN RN rv
[2018-04-05 23:46] VITALS: TEMP 97.9; O2SAT 100
[2018-04-05 23:47] VITALS: BP 102/75
--- NOTE | 2018-04-06 07:32 | RAD REPORT ---
EXAM DESCRIPTION: US - Extremity Venous Uni Ltd - 04/05/2018 10:58 pm CLINICAL HISTORY: Leg pain and swelling COMPARISON: None. TECHNIQUE: Real-time sonographic evaluation of the left lower extremity deep venous system was perfo rmed. FINDINGS: Normal compressibility, flow augmentation, phasic flow and spontaneous flow are identified in the left lower extremity common femoral, superficial femoral, popliteal and posterior tibial vein s. No intraluminal filling defects seen. IMPRESSION: No DVT in the left lower extremity.
== END 2018-04-05 23:41 | disposition home or self-care (01) ==
LOC: ER 20:15
DX: M79.605 Pain in left leg (principal); E03.9 Hypothyroidism, unspecified
CPT/HCPCS: 93971; 99284

== ENCOUNTER 2018-05-17 11:34 | Emergency (ER) | payer OTHER ==
--- OUTSIDE RECORDS SUMMARY | 2018-05-17 11:36 | XMS REPORT | Continuity of Care Document ---
:1965 Author Organization Interface Problems Problem Status Onset Classification Date Comments Source Date Reported H/O gastric bypass Active Finding 08/18/[address] [facility] [place] GI bleed Active Finding 08/18/[address] [facility] [place] Anemia Active Finding 08/18/[address] [facility] [place] Syncope Resolved Finding 08/18/[address] [facility] [place] Nausea Active Finding 08/18/[address] [facility] [place] Gastrointestinal Active Finding 08/18/[address] [facility] hemorrhage 018 [facility] [place] History of gastric Active Finding 08/18/[address] [facility] bypass 018 [facility] [place] Epigastric pain Active Finding 08/18/[address] [facility] [place] Hiatal hernia with Active Finding 08/18/[address] [facility] GERD [facility] [place] Gastric ulcer Active Finding 08/18/[address] [facility] [place] Jejunal ulcer Active Finding 08/18/[address] [facility] [place] Gastroesophageal Active Finding 08/18/[address] [facility] reflux disease with [facility] hiatal hernia [place] Medications Medication Details Route Status Patient Ordering Order Source Instructions Provider Date Multivit With DAILY Active Prezas [facility]18 [facility] [place] Pantoprazole TWICE Active Prezas [facility]18 [facility] [place] Allergies, Adverse Reactions, Alerts Substance Category Reaction Severity Reaction Status Date Comments Source type Reported Immunizations Immunization Date Given Site Status Last Updated Comments Source Results Order Name Results Value Reference Date Interpretation Comments Source Range Laboratory Hemoglobin 11.0 g/dL 12.0 - 08/[address] [facility] Studies 15.0 /2017 [facility] [place] Laboratory Hematocrit 32.9 % 36.0 - 08/[address] [facility] Studies 45.0 /2017 [facility] [place] Laboratory Cortisol Cortisol 08/[address] [facility] [address] Studies Response to Response to /2017 [facility] Stimulation Stimulation [place] Laboratory Total 0.7 mg/dL 0.3 - 1.2 08/18 [facility] [address] Studies Bilirubin /2017 [facility] [place] [facility] Sodium Level 141 mEq/L 135 - 145 08/[address] [facility] [address] Studies /2017 [facility] [place] [facility] Serum Total 4.9 g/dL 6.0 - 8.3 08/[address] [facility] [address] Studies Protein /2017 [facility] [place] [facility] Potassium 3.7 mEq/L 3.6 - 5.0 08/[address] [facility] [address] Studies Level /2017 [facility] [place] [facility] Magnesium 1.6 mg/dL 1.8 - 2.5 08/[address] [facility] [address] Studies Level /2017 [facility] [place] [facility] Glucose Level 88 mg/dL 65 - 120 08/[address] [facility] [address] Studies /2017 [facility] [place] [facility] Globulin 2.2 g/dL 2.3 - 3.5 08/[address] [facility] [address] Studies /2017 [facility] [place] Laboratory Estimat null 90 08/[address] [facility] [address] Studies Glomerular /2017 [facility] Filtration [place] Rate Laboratory Creatinine 0.55 mg/dL 0.44 - 08/[address] [facility] [address] Studies 1.00 [facility] [place] [facility] Chloride 106 mEq/L 101 - 111 08/[address] [facility] [address] Studies Level /2018 [facility] [place] Laboratory Carbon 29 mEq/L 21 - 31 08/[address] [facility] [address] Studies Dioxide Level /2017 [facility] [place] Laboratory Calcium Level 8.2 mg/dL 8.5 - 10.5 08/18 [facility] [address] Studies /2018 [facility] [place] Laboratory Blood Urea 5 mg/dL 6 - 20 08/18 [facility] [address] Studies Nitrogen /2017 [facility] [place] Laboratory Aspartate 21 IU/L 10 - 42 08/18 [facility] [address] Studies Amino Transf /2017 [facility] (AST/SGOT) [place] [facility] Alkaline 37 IU/L 42 - 121 08/[address] [facility] [address] Studies Phosphatase /2017 [facility] [place] Laboratory Albumin/Globu 1.2 1.1 - 1.8 08/[address] [facility] [address] Studies nia Ratio /2017 [facility] [place] Laboratory Albumin 2.7 g/dL 3.2 - 5.5 08/[address] [facility] [address] Studies /2017 [facility] [place] Laboratory Alanine 14 IU/L 10 - 60 08/18 [facility]. Studies Aminotransfer /2017 [facility] ase [place] (ALT/SGPT) Laboratory White Blood 5.6 K/uL 4.3 - 10.9 08/18 [facility]. Studies Count /2017 [facility] [place] Laboratory Red Cell 13.4 % 12.1 - 08/18 [facility]. Studies Distribution 15.2 /2017 [facility] Width [place] Laboratory Red Blood 3.20 M/uL 3.86 - 03 [facility]. Studies Count 4.86 /2017 [facility] [place] Laboratory Platelet 114 K/uL 152 - 406 08/18 [facility]. Studies Count /2017 [facility] [place] Laboratory Neutrophils % 55.5 % 41.7 - 08/18 [facility]. Studies 73.7 /2017 [facility] [place] Laboratory Monocytes % 9.0 % 3.3 - 12.3 08/[address] [facility] [address] Studies /2017 [facility] [place] Laboratory Mean Platelet 9.4 fL 7.6 - 11.3 08/18 [facility]. Studies Volume /2017 [facility] [place] Laboratory Mean 90.0 fL 80 - 100 08/18 [facility]. Studies Corpuscular /2017 [facility] Volume [place] Laboratory Mean 34.0 g/dL 32.0 - 03 [facility]. Studies Corpuscular 36.0 [facility] Hemoglobin [place] Concent Laboratory Mean 30.6 pg 27.0 - 08/18 [facility]. Studies Corpuscular 35.0 [facility] Hemoglobin [place] Laboratory Lymphocytes % 34.0 % 15.3 - 03 [facility] [address] Studies 44.8 /2018 [facility] [place] Laboratory Eosinophils % 1.2 % 0 - 4.4 08/18 [facility]. Studies /2017 [facility] [place] Laboratory Basophils % 0.3 % 0 - 1.3 08/18 [facility]. Studies /2017 [facility] [place] Laboratory Absolute 3.1 K/uL 1.8 - 8.0 08/18 [facility]. Studies Neutrophil /2018 [facility] [place] [facility] Absolute 0.5 K/uL 0.1 - 1.3 08/18 [facility]. Studies Monocytes /2017 [facility] (CBC) [place] Laboratory Absolute 1.9 K/uL 0.7 - 4.9 08/18 [facility] [address] Studies Lymphocytes /2017 [facility] (CBC) [place] Laboratory Absolute 0.1 K/uL 0 - 0.5 08/18 [facility] [address] Studies Eosinophils /2017 [facility] (CBC) [place] Laboratory Absolute 0.0 K/uL 0 - 0.5 08/18 [facility] [address] Studies Basophils /2017 [facility] (CBC) [place] Laboratory Cortisol 4.4 ug/dL 6.7 - 22.6 08/[address] [facility] [address] Studies /2018 [facility] [place] Laboratory Vitamin B12 null 180 - 914 08/[facility] [address] Studies Level /2017 [facility] [place] Laboratory Transferrin % 9.8 % 20.0 - 08/16 [facility] [address] Studies Saturation 50.0 [facility] [place] Laboratory Transferrin 240 mg/dL 192 - 382 08/[facility] [address] Studies /2017 [facility] [place] Laboratory Total Iron 336 ug/dL 250 - 460 08/[address] [facility] [address] Studies Binding /2017 [facility] Capacity [place] Laboratory Iron Level 33.0 ug/dL 28 - 170 08/[address] [facility] [address] Studies /2017 [facility] [place] [facility] Thyroid 1.08 uIU/mL 0.34 - 08/15 [facility] [address] Studies Stimulating 5. [facility] Hormone (TSH) [place] Laboratory Phosphorus 3.8 mg/dL 2.5 - 4.3 08/14 [facility] [address] Studies Level /2017 [facility] [place] Laboratory Prothrombin 13.6 9.5 - 12.5 08/[address] [facility] [address] Studies Time SECONDS [facility] [place] Laboratory INR 1.15 08/[address] [facility] [address] Studies International /2017 [facility] Normalized [place] Ratio Laboratory Urine pH 8.5 08/13 [facility] [address] Studies /2017 [facility] [place] Laboratory Urine Total Urine Total 08/[address] [facility] [address] Studies Protein Protein /2017 [facility] [place] Laboratory Urine 1.020 08/[address] [facility] [address] Studies Specific /2017 [facility] [place] Laboratory Urine Urine 08/13 [facility]. Studies /2017 [facility] Test Test [place] Laboratory Urine Nitrite Urine 08/[address] [facility] [address] Studies Nitrite [facility] [place] Laboratory Urine Urine 08/[address] [facility] [address] Studies Leukocyte Leukocyte /2018 [facility] Esterase Esterase [place] Laboratory Urine Ketones Urine 08/[address] [facility] [address] Studies Ketones [facility] [place] Laboratory Urine Glucose Urine 08/[address] [facility] [address] Studies Glucose [facility] [place] Laboratory Urine Blood Urine Blood 08/[address] [facility] [address] Studies [facility] [place] Laboratory Activated 23.5 24.3 - 08/[address] [facility] [address] Studies Partial SECONDS 36.9 [facility] Thromboplast [place] Time Laboratory Creatine 1.4 ng/ml 0.3 - 4.0 08/13 [facility] [address] Studies [facility]ase [facility] [place] [facility] Direct 0.1 mg/dL 0 - 0.2 08/13 [facility]. Studies Bilirubin [facility] [place] Laboratory Creatine 75 IU/L 22 - 269 08/[address] [facility] [address] Studies Kinase [facility] [place] Laboratory Amylase Level 93 U/L 28 - 100 08/[address] [facility] [address] Studies [facility] [place] Laboratory Rapid null 08/13 [facility]. Studies Troponin I [facility] [place] Lipase 12 U/L 22 - 51 08/[address] [facility] [address] Studies [facility] [place] Vital Signs Vital Sign Value Date Comments Source Temperature Oral (F) 98.6 F [facility] [place] [facility] 74 [facility] [place] Respitory Rate 20 08/18/2017 [facility] [place] Systolic (mm Hg) 109 08/18[facility] Diastolic (mm Hg) 65 08/18[facility] Height 64 [facility] [place] Weight 148.00 08/18/2017 [facility] [place] Encounters Location Location Encounter Encounter Reason Attending ADM DC Status Source Details Type Number For Provider Date Date Visit [facility]. Discharged [id number] 08/14 08/18 [facility] [place] Procedures Procedure Code Date Perfomer Comments Source Head Brain [facility] [id number] [facility] [place] Abdomen & [id number] [facility] Pelvis W 8 [place] Contrast Chest Single [id number] [facility] View 8 [place]
--- NOTE | 2018-05-17 14:20 | RAD REPORT ---
EXAM DESCRIPTION: RAD - Foot Right 3 View - 05/17/2018 1:39 pm CLINICAL HISTORY: Nontraumatic foot and ankle pain COMPARISON: None. FINDINGS: No fracture, dislocation or periosteal reaction. No acute or destructive bone or joint fin ding. Patient has IP joint degenerative changes and there degenerative changes at the first MTP joint . Moderately large plantar spur is present. No air or foreign body in the soft tissues. IMPRESSION: Degenerative changes at the IP joints and first MTP joint. Moderate-sized plantar spur. No acute finding.
--- NOTE | 2018-05-17 14:21 | RAD REPORT ---
EXAM DESCRIPTION: RAD - Ankle Right 3 View - 05/17/2018 1:39 pm CLINICAL HISTORY: Foot and ankle pain with no known trauma COMPARISON: None. FINDINGS: No fracture, dislocation or periosteal reaction. No joint effusion seen. No joint space na rrowing. Moderate-sized plantar spur is present. Soft tissues around the ankle are prominent with bas jodie unknown. IMPRESSION: No acute bone or joint finding. Moderate plantar spur
--- NOTE | 2018-05-17 14:23 | EDPHYS ---
Physician Documentation [facility] Name: Ileana Madden Age: 53 yrs Sex: Female : 1965 Arrival Date: 05/17/2018 Time: 11:37 Bed 9 Private MD: out of town, doctor ED Physician Damaso Akins HPI: 05/17 13:53 This 53 yrs old Black Female presents to ER via Wheelchair with complaints of Foot Pain.kb 13:53 The patient presents with pain, that is acute, swelling. The complaints affect the kb right foot. Context: The problem was sustained at home, resulted from an unknown cause, Mechanism of Injury: Unknown the patient can partially bear weight, the patient is able to ambulate. Onset: The symptoms/episode began/occurred yesterday, woke up with pain and swelling. Modifying factors: The symptoms are alleviated by nothing, the symptoms are aggravated by weight bearing. Associated signs and symptoms: Pertinent positives: swelling, Pertinent negatives: calf tenderness, fever, nausea, numbness, rash, tingling, vomiting, warmth, weakness. Severity of symptoms: At their worst the symptoms were moderate, in the emergency department the symptoms are unchanged. The patient has not experienced similar symptoms in the past. The patient has not recently seen a physician. Historical: - Allergies: 12:37 No Known Allergies; la1 - PMHx: 12:37 Anemia; GERD; Hypothyroidism; la1 - Immunization history:: Adult Immunizations up to date. - Social history:: Smoking status: Patient/guardian denies using tobacco. - Ebola Screening: : No symptoms or risks identified at this time. ROS: 13:53 Constitutional: Negative for fever, chills, and weight loss, Cardiovascular: Negative kb for chest pain, palpitations, and edema, Respiratory: Negative for shortness of breath, cough, wheezing, and pleuritic chest pain, Abdomen/GI: Negative for abdominal pain, nausea, vomiting, diarrhea, and constipation, Skin: Negative for injury, rash, and discoloration, Neuro: Negative for headache, weakness, numbness, tingling, and seizure. 13:53 MS/extremity: Positive for pain, swelling, tenderness, of the medial aspect of right foot. Exam: 13:53 Constitutional: This is a well developed, well nourished patient who is awake, alert, kb and in no acute distress. Head/Face: Normocephalic, atraumatic. Neck: Trachea midline, no thyromegaly or masses palpated, and no cervical lymphadenopathy. Supple, full range of motion without nuchal rigidity, or vertebral point tenderness. No Meningismus. Chest/axilla: Normal chest wall appearance and motion. Nontender with no deformity. No lesions are appreciated. Cardiovascular: Regular rate and rhythm with a normal S1 and S2. No gallops, murmurs, or rubs. Normal PMI, no JVD. No pulse deficits. Respiratory: Lungs have equal breath sounds bilaterally, clear to auscultation and percussion. No rales, rhonchi or wheezes noted. No increased work of breathing, no retractions or nasal flaring. Abdomen/GI: Soft, non-tender, with normal bowel sounds. No distension or tympany. No guarding or rebound. No evidence of tenderness throughout. Skin: Warm, dry with normal turgor. Normal color with no rashes, no lesions, and no evidence of cellulitis. Neuro: Awake and alert, GCS 15, oriented to person, place, time, and situation. Cranial nerves II-XII grossly intact. Motor strength 5/5 in all extremities. Sensory grossly intact. Cerebellar exam normal. Normal gait. 13:53 Musculoskeletal/extremity: Extremities: grossly normal except: noted in the medial aspect of right foot: pain, swelling, tenderness, ROM: limited active range of motion due to pain, in the right foot, Circulation is intact in all extremities. Sensation intact. Weight bearing: can bear weight with assistance only. Vital Signs: 12:37 BP 114 / 66; Pulse 62; Resp 16; Temp 98.4; Pulse Ox 98% on R/A; Weight 72.57 kg; Height la1 5 ft. 4 in. (162.56 cm); 12:37 Body Mass Index 27.46 (72.57 kg, 162.56 cm) la1 MDM: 13:47 Patient medically screened. kb 13:47 Patient medically screened. kb 13:58 Data reviewed: vital signs, nurses notes. Data interpreted: Pulse oximetry: on room air kb is 98 %. Interpretation: normal. Counseling: I had a detailed discussion with the patient and/or guardian regarding: the historical points, exam findings, and any diagnostic results supporting the discharge/admit diagnosis, radiology results, the need for outpatient follow up, a family practitioner, to return to the emergency department if symptoms worsen or persist or if there are any questions or concerns that arise at home. 05/17 12:38 Order name: Ankle Right 3 View XRAY; Complete Time: 14:22 la1 12 12:38 Order name: Foot Right 3 View XRAY; Complete Time: 14:22 la1 05/17 14:23 Order name: Crutches; Complete Time: 14:57 kb 05/17 14:23 Order name: Luis Wrap; Complete Time: 14:57 kb Administered Medications: 14:45 Drug: [place] (7.5 mg-325 mg) 1 tabs Route: PO; hb 14:57 Follow up: Response: Medication administered at discharge. hb Disposition: 05/18 07:39 Co-signature as Attending Physician, Damaso Akins MD I agree with the assessment and sage plan of care. Disposition: 05/17/18 14:22 Discharged to Home. Impression: Pain in right foot. - Condition is Stable. - Discharge Instructions: Musculoskeletal Pain. - Prescriptions for Diclofenac Sodium 75 mg Oral Tablet, Delayed Release (E.C.) - take 1 tablet by ORAL route 2 times per day As needed; 30 tablet. - Medication Reconciliation Form, Thank You Letter, Antibiotic Education, Prescription Opioid Use, Work release form form. - Follow up: Emergency Department; When: As needed; Reason: Worsening of condition. Follow up: Private Physician; When: 2 - 3 days; Reason: Recheck today's complaints, Continuance of care, Re-evaluation by your physician. Signatures: Dispatcher [employer] Camilla Maddox, PLANER CHAIN OFFBEARER-C PLANER CHAIN OFFBEARER-Damaso Faith MD MD cha Attema, Lee, RN RN la1 Cheri Ashby, CONCEPCION RN Corrections: (The following items were deleted from the chart) 05/17 14:57 14:22 05/17/2018 14:22 Discharged to Home. Impression: Pain in right foot. Condition is hb Stable. Forms are Medication Reconciliation Form, Thank You Letter, Antibiotic Education, Prescription Opioid Use. Follow up: Emergency Department; When: As needed; Reason: Worsening of condition. Follow up: Private Physician; When: 2 - 3 days; Reason: Recheck today's complaints, Continuance of care, Re-evaluation by your physician. kb
--- NOTE | 2018-05-17 14:23 | ER ---
Nurse's Notes [facility] Name: Ileana Madden Age: 53 yrs Sex: Female : 1965 Arrival Date: 05/17/2018 Time: 11:37 Bed 9 Private MD: out of town, doctor Diagnosis: Pain in right foot Presentation: 05/17 12:36 Presenting complaint: Patient states: Right foot/ankle pain since yesterday. Pt states la1 the only thing she can think of was walking up the stairs and maybe she landed on it wrong. Transition of care: patient was not received from another setting of care. Onset of symptoms was May 17, 2018. Risk Assessment: Do you want to hurt yourself or someone else? Patient reports no desire to harm self or others. Initial Sepsis Screen: Does the patient meet any 2 criteria? No. Patient's initial sepsis screen is negative. Does the patient have a suspected source of infection? No. Patient's initial sepsis screen is negative. Care prior to arrival: None. 12:36 Method Of Arrival: Wheelchair la1 12:36 Acuity: CHAUNCEY 4 la1 Historical: - Allergies: 12:37 No Known Allergies; la1 - PMHx: 12:37 Anemia; GERD; Hypothyroidism; la1 - Immunization history:: Adult Immunizations up to date. - Social history:: Smoking status: Patient/guardian denies using tobacco. - Ebola Screening: : No symptoms or risks identified at this time. Screenin:38 Abuse screen: Denies threats or abuse. Nutritional screening: No deficits noted. la1 Tuberculosis screening: No symptoms or risk factors identified. Fall Risk None identified. Assessment: 13:37 General: Appears in no apparent distress. Behavior is calm, cooperative. Pain: la1 Complains of pain in lateral side of right foot and right medial malleolus. Neuro: Level of Consciousness is awake, alert, obeys commands, Oriented to person, place, time, situation. Cardiovascular: Capillary refill < 3 seconds Patient's skin is warm and dry. Respiratory: Airway is patent Respiratory effort is even, unlabored, Respiratory pattern is regular, symmetrical. GI: No signs and/or symptoms were reported involving the gastrointestinal system. : No signs and/or symptoms were reported regarding the genitourinary system. Musculoskeletal: Circulation, motion, and sensation intact. Range of motion: intact in all extremities, Pt has pain when bearing wait on right foot. Vital Signs: 12:37 BP 114 / 66; Pulse 62; Resp 16; Temp 98.4; Pulse Ox 98% on R/A; Weight 72.57 kg; Height la1 5 ft. 4 in. (162.56 cm); 12:37 Body Mass Index 27.46 (72.57 kg, 162.56 cm) la1 ED Course: 11:37 Patient arrived in ED. as 11:37 out of town, doctor is Private Physician. as 12:37 Triage completed. la1 12:37 Arm band placed on left wrist. la1 13:35 X-ray completed. Portable x-ray completed in exam room. Patient tolerated procedure la2 well. 13:36 Ankle Right 3 View XRAY In Process Unspecified. EDMS 13:36 Foot Right 3 View XRAY In Process Unspecified. EDMS 13:37 Matheus Collazo RN is Primary Nurse. la1 13:38 Call light in reach. la1 13:47 Camilla Bynum FNP-C is [facility]. kb 13:47 Damaso Akins MD is Attending Physician. kb 14:57 No provider procedures requiring assistance completed. Patient did not have IV access hb during this emergency room visit. Administered Medications: 14:45 Drug: [place] (7.5 mg-325 mg) 1 tabs Route: PO; hb 14:57 Follow up: Response: Medication administered at discharge. hb Outcome: 14:22 Discharge ordered by . kb 14:57 Discharged to home with crutches, with family. hb 14:57 Condition: stable 14:57 Discharge instructions given to patient, family, Instructed on discharge instructions, follow up and referral plans. medication usage, crutch walking, Demonstrated understanding of instructions, follow-up care, medications, Prescriptions given X 1. 14:57 Patient left the ED. hb Signatures: Dispatcher [employer] EDMS Camilla Bynum FNP-C FNP-Ckb Martinez, Amelia as Matheus Collazo RN RN la1 Cheri Ashby RN RN Alley Medina la2
[2018-05-17] MEDS ORDERED: HYDROCODONE/APAP 7.5/325 MG TAB ONE (14:58)
[2018-05-17 17:33] VITALS: BP 114/66; TEMP 98.4; O2SAT 98
== END 2018-05-17 14:57 | disposition home or self-care (01) ==
LOC: ER 11:34
DX: M79.671 Pain in right foot (principal); M77.51 Other enthesopathy of right foot and ankle
CPT/HCPCS: 99284